=== PATIENT | male | born 1965 | race Hispanic/Latino ===

== ENCOUNTER 2019-08-23 05:49 | Day surgery (SDC) | payer OTHER ==
[~2019-08-23] VITALS: Ht 175.3 cm; Wt 165.6 kg
[~2019-08-23 05:49] MED LIST: CANA1TAB8 PO; ESCI10TA PO; HYDR-4068 PO; LINA145C PO; OLME5TAB6 PO; PRAV10TA39 PO; SEMAGLUTIDE SQ; TAMS-1 PO; VITAD50000 PO
[2019-08-23] MEDS ORDERED: SODIUM CHLORIDE 0.9% 1000ML 1,000 ML IV ONE (06:26)
[2019-08-23 06:34] VITALS: BP 113/80
[2019-08-23] MEDS ORDERED: LIDOCAINE HCL 1% 20 ML VIAL ONE (07:50)
[2019-08-23] MEDS ORDERED: PROPOFOL 10 MG/ML 20ML VIAL IV ONE (07:50)
[2019-08-23 08:18] VITALS: BP 118/61
[2019-08-23 08:25] VITALS: BP 112/80
[2019-08-23 08:45] VITALS: BP 121/76
--- NOTE | 2019-08-23 08:56 | NUR ---
PATIENT DISCHARGED [id number] Addendum: 08/23/19 at 0857 by MAYTE AIKEN RN RN Amended: Links added.
== END 2019-08-23 08:52 | disposition home or self-care (01) ==
LOC: ENDO 05:49 → DAH 05:49 → ENDO 08:52
PROVIDERS: ATTEND Internal Medicine
DX: Z12.11 Encounter for screening for malignant neoplasm of colon (principal); D12.5 Benign neoplasm of sigmoid colon; K57.30 Diverticulosis of large intestine without perforation or abscess without bleeding; K64.8 Other hemorrhoids; E78.00 Pure hypercholesterolemia, unspecified; F41.9 Anxiety disorder, unspecified; E11.9 Type 2 diabetes mellitus without complications; Z88.8 Allergy status to other drugs, medicaments and biological substances; Z79.899 Other long term (current) drug therapy; Z87.891 Personal history of nicotine dependence; Z90.49 Acquired absence of other specified parts of digestive tract
CPT/HCPCS: 45380; 82948; 88305; A4215; A4221; A4223; A4606; A4615; A4663; J2704; J7030